=== PATIENT | male | born 2005 ===

== ENCOUNTER 2024-02-09 17:54 | Outpatient (REF) | payer MEDICAID, SELFPAY ==
[2024-02-10 06:34] LABS: CT PCR NOT DETECTED (Not Detect.); NG PCR NOT DETECTED (Not Detect.)
== END 2024-02-09 17:55 | disposition home or self-care (01) ==
LOC: HO.HHCLNP 17:54
PROVIDERS: Visit Provider Nurse Practitioner Family
DX: Z00.00 Encounter for general adult medical examination without abnormal findings (principal)
CPT/HCPCS: 0353U